=== PATIENT | female | born 1940 | race Caucasian/White ===

== ENCOUNTER 2023-12-03 12:42 | Inpatient (IN) | payer MEDICARE, OTHER ==
[~2023-12-03] VITALS: Ht 152.4 cm; Wt 81.6 kg
[~2023-12-03 12:42] MED LIST: DEXTROSE 50% 50 ML DISP.SYRIN ONE
[2023-12-03 13:07] LABS: BASOPHILS # (AUTO) 0.1 K/UL (0.0-0.2); BASOPHILS % (AUTO) 0.7 % (0.0-2.0); EOSINOPHILS % (AUTO) 0.4 % (0.0-7.0); HEMOGLOBIN 8.9 g/dL (10.9-14.3); LYMPHOCYTES # (AUTO) 1.6 K/uL (0.8-4.8); LYMPHOCYTES % (AUTO) 15.6 % (20.5-51.5); MEAN CORPUSCULAR HEMOGLOBIN 29.9 uug (24.7-32.8); MEAN CORPUSCULAR HGB CONC 33 g/dL (32.3-35.6); MONOCYTES # (AUTO) 0.7 K/uL (0.1-1.30); NEUTROPHILS # (AUTO) 7.7 K/uL (1.8-8.9); NEUTROPHILS % (AUTO) 76.3 % (38.5-71.5); PLATELET COUNT (AUTO) 145 K/uL (179-408); RED BLOOD CELL COUNT(AUTO) 2.97 MIL/uL (3.63-4.92); RED CELL DISTRIBUTION WIDTH 13.1 % (12.3-17.7)
[2023-12-03 13:26] LABS: DIFFERENTIAL COMMENT 1
[2023-12-03] MEDS ORDERED: ASPI81TA31 PO (13:31)
[2023-12-03] MEDS ORDERED: FURO20TA4 PO (13:31)
[2023-12-03] MEDS ORDERED: AMLO2.5T4 PO (13:31)
[2023-12-03] MEDS ORDERED: HYDR-4077 PO (13:31)
[2023-12-03] MEDS ORDERED: CLON0.1T PO (13:31)
[2023-12-03] MEDS ORDERED: OMEP40CA21 PO (13:31)
[2023-12-03] MEDS ORDERED: TRAM50TA2 PO (13:31)
[2023-12-03] MEDS ORDERED: LEVO137T2 PO (13:31)
[2023-12-03] MEDS ORDERED: DOXA4TAB3 PO (13:31)
[2023-12-03] MEDS ORDERED: METO-356 PO (13:31)
[2023-12-03] MEDS ORDERED: ACET-2605 PO (13:31)
[2023-12-03] MEDS ORDERED: ATOR10TA PO (13:31)
[2023-12-03] MEDS ORDERED: CYAN-28 PO (13:31)
[2023-12-03] MEDS ORDERED: ALPR0.5T8 PO (13:31)
[2023-12-03] MEDS ORDERED: METOCLOPRAMIDE HCL 10 MG/2 ML VIAL ONE (13:38)
[2023-12-03] MEDS: METOCLOPRAMIDE HCL 10 MG/2 ML VIAL IV ONE (13:40)
[2023-12-03 13:44] LABS: ALANINE AMINOTRANSFERASE 44 U/L (14-59); ALBUMIN 3.1 g/dL (3.4-5.0); ALKALINE PHOSPHATASE 114 U/L (50-136); ASPARTATE AMINOTRANSFERASE 35 U/L (15-37); BILIRUBIN,DIRECT 0.1 mg/dL (0.0-0.2); BILIRUBIN,TOTAL 0.4 mg/dL (0.2-1.0); CALCIUM 8.9 mg/dL (8.5-10.1); CARBON DIOXIDE 27 mmol/L (21-32); CHLORIDE 96 mmol/L (98-107); CREATININE 2.8 mg/dL (0.6-1.3); GLUCOSE 124 mg/dL (74-106); NT-PRO BNP 6252 pg/mL (0-125); SODIUM SERUM 130 mmol/L (136-145); TOTAL PROTEIN, SERUM 6.6 g/dL (6.4-8.2); UREA NITROGEN, BLOOD 57 mg/dL (7-18)
[2023-12-03 13:46] LABS: POTASSIUM 6.2 mmol/L (3.5-5.1)
[2023-12-03] MEDS ORDERED: CALCIUM GLUCONATE 1 GM/10 ML VIAL IV ONE (13:50)
[2023-12-03] MEDS ORDERED: INSULIN REGULAR, HUMAN 300 UNIT/3 ML VIAL ONE (14:03)
[2023-12-03] MEDS: CALCIUM GLUCONATE IV 1 GM in IV DEXTROSE 5% 50 ML IV ONE (14:11)
[2023-12-03] MEDS: INSULIN REGULAR, HUMAN 300 UNIT/3 ML VIAL IV ONE (14:13)
[2023-12-03] MEDS: DEXTROSE 50% 50 ML DISP.SYRIN IV ONE (14:14)
[2023-12-03] MEDS ORDERED: ALBUTEROL SULFATE 2.5 MG/3 ML NEBU ONE (14:19)
[2023-12-03 14:22] VITALS: O2SAT 95
[2023-12-03] MEDS: ALBUTEROL SULFATE 2.5 MG/ 0.5 ML NEBU NEB ONE (14:22)
[2023-12-03] MEDS ORDERED: FUROSEMIDE 40 MG/4 ML VIAL ONE (14:23)
[2023-12-03] MEDS: FUROSEMIDE 40 MG/4 ML VIAL IV ONE (14:33)
[2023-12-03] MEDS: SODIUM POLYSTYRENE SULFONATE 15 G/60 ML LIQUID UDC PO ONE (14:33)
[2023-12-03] MEDS ORDERED: ALPRAZOLAM 0.5 MG TABLET PO PRN (14:45)
[2023-12-03] MEDS ORDERED: ONDANSETRON 4 MG/2 ML VIAL IV PRN (15:00)
[2023-12-03] MEDS ORDERED: ACETAMINOPHEN 325 MG TABLET PO PRN (15:00)
[2023-12-03] MEDS ORDERED: MORPHINE SULFATE 2 MG/1 ML DISP.SYRIN IVP PRN (15:00)
[2023-12-03] MEDS ORDERED: hydrALAZINE HCL 20 MG/1 ML VIAL IV PRN (15:00)
[2023-12-03 15:15] VITALS: O2SAT 100; O2SAT 95
[2023-12-03] MEDS: IV NORMAL SALINE 500 ML BAG IV ONE (15:22)
[2023-12-03 15:24] LABS: ALANINE AMINOTRANSFERASE 44 U/L (14-59); ALBUMIN 3.1 g/dL (3.4-5.0); ALKALINE PHOSPHATASE 115 U/L (50-136); ASPARTATE AMINOTRANSFERASE 43 U/L (15-37); BILIRUBIN,TOTAL 0.3 mg/dL (0.2-1.0); CALCIUM 8.5 mg/dL (8.5-10.1); CARBON DIOXIDE 23 mmol/L (21-32); CHLORIDE 96 mmol/L (98-107); CREATININE 2.9 mg/dL (0.6-1.3); GLUCOSE 124 mg/dL (74-106); POTASSIUM 6.1 mmol/L (3.5-5.1); SODIUM SERUM 129 mmol/L (136-145); TOTAL PROTEIN, SERUM 6.6 g/dL (6.4-8.2); UREA NITROGEN, BLOOD 59 mg/dL (7-18)
[2023-12-03] MEDS ORDERED: ALPRAZOLAM 0.5 MG TABLET ONE (16:13)
[2023-12-03] MEDS: ALPRAZOLAM 0.25 MG TABLET PO PRN (16:17)
[2023-12-03] MEDS ORDERED: hydrALAZINE HCL 50 MG TABLET PO SCH (17:00)
[2023-12-03 17:35] VITALS: BP 145/80; TEMP 97; O2SAT 99
[2023-12-03] MEDS ORDERED: HEPARIN SODIUM,PORCINE 5,000 UNITS/ML VIAL SQ SCH (21:00)
[2023-12-03] MEDS ORDERED: ATORVASTATIN 10 MG TABLET PO SCH (21:00)
[2023-12-04] MEDS ORDERED: LEVOTHYROXINE SODIUM 137 MCG TABLET PO SCH (07:00)
[2023-12-04] MEDS ORDERED: PANTOPRAZOLE SODIUM 40 MG TABLET.DR PO SCH (07:00)
[2023-12-04] MEDS ORDERED: ASPIRIN 81 MG TAB.CHEW PO SCH (09:00)
[2023-12-04] MEDS ORDERED: Medication Not On Formulary EA (Omeprazole 40 MG) PO SCH (09:00)
[2023-12-04] MEDS ORDERED: AMLODIPINE 2.5 MG TABLET PO SCH (09:00)
[2023-12-04] MEDS ORDERED: FUROSEMIDE 20 MG TABLET PO SCH (09:00)
[2023-12-04] MEDS ORDERED: DOXAZOSIN 2 MG TABLET PO SCH (09:00)
== END 2023-12-03 17:20 | disposition left against medical advice (07) | DRG 641 ==
LOC: ER 12:42 → TRANSITION 17:04 → UNDODISIN 17:30
PROVIDERS: ADMIT Internal Medicine; ATTEND Internal Medicine
DX: E87.5 Hyperkalemia (principal); N18.4 Chronic kidney disease, stage 4 (severe); R00.1 Bradycardia, unspecified; I25.10 Atherosclerotic heart disease of native coronary artery without angina pectoris; I25.2 Old myocardial infarction; I50.9 Heart failure, unspecified; Z79.899 Other long term (current) drug therapy; Z79.82 Long term (current) use of aspirin
CPT/HCPCS: 36415; 71045; 83735; 84443; 84481; 84484; 85025; 93005; 93307; G0378; J0610; J1815; J1940; J2765; J3490; J7040; J7060

== ENCOUNTER 2025-02-21 01:12 | Inpatient (IN) | payer MEDICARE, OTHER ==
[2025-02-21] VITALS (10 sets, daily range): BP systolic 123–142; BP diastolic 44–54; TEMP 98.3–99.1; O2SAT 96–99
[~2025-02-21] VITALS: Ht 152.4 cm; Wt 80.8 kg
[~2025-02-21 01:12] MED LIST changes: +ACET-2605 PO; +ALPR0.5T8 PO; +AMLO2.5T4 PO; +ASPI81TA31 PO; +ATOR10TA PO; +CLON0.1T PO; +CYAN-28 PO; -DEXTROSE 50% 50 ML DISP.SYRIN ONE; +DOXA4TAB3 PO; +FURO20TA4 PO; +HYDR-4077 PO; +LEVO137T2 PO; +METO-356 PO; +OMEP40CA21 PO; +TRAM50TA2 PO
[2025-02-21 02:34] LABS: *BILIRUBIN,URIN NEGATIVE (NEGATIVE); *BLOOD, URINE NEGATIVE (NEGATIVE); *CLARITY,URINE CLOUDY (CLEAR); *COLOR,URINE YELLOW (YELLOW); *KETONES,URINE NEGATIVE (NEGATIVE); *PROTEIN,URINE NEGATIVE (NEGATIVE); *UROBILINOGEN,URINE 0.2 E.U./dl (NORMAL); LEUKOCYTE ESTERASE ,URINE 2+ (NEGATIVE); NITRITE, URINE POSITIVE (NEGATIVE); UGLUCOSE NEGATIVE (NEGATIVE)
[2025-02-21 02:35] LABS: PLATELET COUNT (AUTO) 280 K/uL (179-408); RED BLOOD CELL COUNT(AUTO) 2.89 MIL/uL (3.63-4.92); RED CELL DISTRIBUTION WIDTH 16.0 % (12.3-17.7); WHITE BLOOD COUNT (AUTO) 10.8 K/uL (3.8-11.8)
[2025-02-21 02:49] LABS: SQUAMOUS EPITHELIAL CELL,UR FEW /HPF (NONE SEEN)
[2025-02-21 02:51] LABS: CREATININE 2.4 mg/dL (0.6-1.3); SODIUM SERUM 135 mmol/L (136-145)
[2025-02-21 02:57] LABS: ASPARTATE AMINOTRANSFERASE 15 U/L (15-37); TOTAL PROTEIN, SERUM 7.3 g/dL (6.4-8.2); UREA NITROGEN, BLOOD 86 mg/dL (7-18)
[2025-02-21 03:22] LABS: CREATINE KINASE, TOTAL 29 U/L (26-192)
[2025-02-21] MEDS ORDERED: REMEDY ESSENTIAL ZINC PASTE 113 GM TP PRN (03:30)
[2025-02-21] MEDS ORDERED: ONDANSETRON 4 MG/2 ML VIAL IV PRN (03:30)
[2025-02-21] MEDS ORDERED: HYDROCODONE/APAP 5-325MG TABLET PO PRN (03:30)
[2025-02-21] MEDS ORDERED: MAGNESIUM HYDROXIDE 30 ML LIQUID UDC PO PRN (03:30)
[2025-02-21] MEDS ORDERED: TEMAZEPAM 15 MG CAPSULE PO PRN (03:30)
[2025-02-21] MEDS ORDERED: ACETAMINOPHEN 325 MG TABLET PO PRN (03:30)
[2025-02-21] MEDS: IV NORMAL SALINE 500 ML IV ONE (03:37)
[2025-02-21] MEDS: ALPRAZOLAM 0.5 MG TABLET PO ONE (05:48)
[2025-02-21] MEDS: PANTOPRAZOLE SODIUM 40 MG TABLET.DR PO SCH (06:18)
[2025-02-21] MEDS: ASPIRIN 81 MG TAB.CHEW PO SCH (08:46)
[2025-02-21] MEDS ORDERED: CHOL2000 PO (10:21)
[2025-02-21] MEDS ORDERED: AZEL137S7 BNOSTRILS (10:21)
[2025-02-21] MEDS ORDERED: FOLI1TAB27 PO (10:22)
[2025-02-21] MEDS ORDERED: DICL100G31 TP (10:24)
[2025-02-21] MEDS ORDERED: TRAMADOL HCL 50 MG TABLET PO PRN (18:00)
[2025-02-21] MEDS: ALPRAZOLAM 0.5 MG TABLET PO PRN (18:37)
[2025-02-21] MEDS: ATORVASTATIN 10 MG TABLET PO SCH (20:25)
[2025-02-22 00:30] LABS: *BILIRUBIN,URIN NEGATIVE (NEGATIVE); *BLOOD, URINE NEGATIVE (NEGATIVE); *CLARITY,URINE SLIGHTLY CLOUDY (CLEAR); *COLOR,URINE YELLOW (YELLOW); *KETONES,URINE NEGATIVE (NEGATIVE); *PROTEIN,URINE 1+ (NEGATIVE); *UROBILINOGEN,URINE 0.2 E.U./dl (NORMAL); LEUKOCYTE ESTERASE ,URINE 1+ (NEGATIVE); NITRITE, URINE NEGATIVE (NEGATIVE); UGLUCOSE NEGATIVE (NEGATIVE)
[2025-02-22 00:43] LABS: *CREATININE,URINE 24.8 mg/dL (30-125); *SODIUM RNDM,URINE 13.0 mmol/L (40-220); *URINE TOTAL PROTEIN RANDOM 24.3 mg/dL (<150/24HR)
[2025-02-22 00:48] LABS: SQUAMOUS EPITHELIAL CELL,UR MODERATE /HPF (NONE SEEN)
[2025-02-22 05:14] VITALS: BP 156/61; TEMP 97.4; O2SAT 98
[2025-02-22] MEDS: LEVOTHYROXINE SODIUM 137 MCG TABLET PO SCH (06:10)
[2025-02-22 07:10] LABS: PLATELET COUNT (AUTO) 236 K/uL (179-408); RED BLOOD CELL COUNT(AUTO) 2.62 MIL/uL (3.63-4.92); RED CELL DISTRIBUTION WIDTH 16.0 % (12.3-17.7); WHITE BLOOD COUNT (AUTO) 6.7 K/uL (3.8-11.8)
[2025-02-22 07:11] LABS: ASPARTATE AMINOTRANSFERASE 15 U/L (15-37); CREATINE KINASE, TOTAL 38 U/L (26-192); CREATININE 1.9 mg/dL (0.6-1.3); SODIUM SERUM 141 mmol/L (136-145); TOTAL PROTEIN, SERUM 6.3 g/dL (6.4-8.2); UREA NITROGEN, BLOOD 66 mg/dL (7-18)
[2025-02-22 07:42] VITALS: BP 155/60; TEMP 98.5; O2SAT 98
[2025-02-22 08:05] LABS: IRON, SERUM 24 ug/dL (50-175)
[2025-02-22] MEDS: DOXAZOSIN 2 MG TABLET PO SCH (08:54)
[2025-02-22] MEDS: METOPROLOL SUCCINATE XL 25 MG TAB.SR.24H PO SCH (08:55)
[2025-02-22] MEDS: FOLIC ACID 1 MG TABLET PO SCH (08:55)
[2025-02-22] MEDS: CLONIDINE HCL 0.1 MG TABLET PO SCH (08:55)
[2025-02-22] MEDS ORDERED: ASPIRIN 81 MG TAB.CHEW PO SCH (09:00)
[2025-02-22 10:50] VITALS: BP 139/48; TEMP 97.9; O2SAT 97
[2025-02-22] MEDS: SOD FERRIC GLUC COMPLX/SUCROSE 125 MG in IV NORMAL SALINE 100 ML IV SCH (15:06)
[2025-02-22 15:53] VITALS: BP 145/50; TEMP 98.1; O2SAT 96
[2025-02-22] MEDS: ENSURE ENLIVE (VAN) 240 ML LIQUID PO SCH (17:32)
[2025-02-22 19:20] VITALS: BP 140/54; TEMP 98.9; O2SAT 98
[2025-02-23 03:27] LABS: *OCCULT BLOOD STOOL NEGATIVE (NEGATIVE)
[2025-02-23 06:58] LABS: CREATININE 1.9 mg/dL (0.6-1.3); SODIUM SERUM 141 mmol/L (136-145); UREA NITROGEN, BLOOD 54 mg/dL (7-18)
[2025-02-23 07:04] VITALS: BP 156/61; TEMP 98; O2SAT 97
[2025-02-23 08:07] LABS: PTH, INTACT 26 pg/mL (15-65)
[2025-02-23 08:19] LABS: PLATELET COUNT (AUTO) 241 K/uL (179-408); RED BLOOD CELL COUNT(AUTO) 2.64 MIL/uL (3.63-4.92); RED CELL DISTRIBUTION WIDTH 16.2 % (12.3-17.7); WHITE BLOOD COUNT (AUTO) 8.0 K/uL (3.8-11.8)
[2025-02-23 11:06] VITALS: BP 120/60; TEMP 98.2; O2SAT 96
[2025-02-23] MEDS ORDERED: SULF1TAB48 PO (14:44)
[2025-02-23] MEDS ORDERED: FERR-68 PO (14:44)
[2025-02-23 15:00] VITALS: BP 130/52; TEMP 97.6; O2SAT 98
== END 2025-02-23 16:30 | disposition home health service (06) | DRG 291 ==
LOC: ER 01:22 → TELE3 03:25 → MEDSURG3 02-22 09:30
PROVIDERS: ADMIT Nurse Practitioner Acute Care; ATTEND Internal Medicine
DX: I13.0 Hypertensive heart and chronic kidney disease with heart failure and stage 1 through stage 4 chronic kidney disease, or unspecified chronic kidney disease (principal); G93.41 Metabolic encephalopathy; N39.0 Urinary tract infection, site not specified; N17.9 Acute kidney failure, unspecified; E87.1 Hypo-osmolality and hyponatremia; I24.89 Other forms of acute ischemic heart disease; D63.1 Anemia in chronic kidney disease; R62.7 Adult failure to thrive; Z68.35 Body mass index [BMI] 35.0-35.9, adult; E86.0 Dehydration; E03.9 Hypothyroidism, unspecified; I25.2 Old myocardial infarction; B96.20 Unspecified Escherichia coli [E. coli] as the cause of diseases classified elsewhere; N18.9 Chronic kidney disease, unspecified; I50.9 Heart failure, unspecified; G31.84 Mild cognitive impairment of uncertain or unknown etiology; E78.5 Hyperlipidemia, unspecified; I25.10 Atherosclerotic heart disease of native coronary artery without angina pectoris; E66.9 Obesity, unspecified; Z68.34 Body mass index [BMI] 34.0-34.9, adult; K21.9 Gastro-esophageal reflux disease without esophagitis; Z79.899 Other long term (current) drug therapy; Z79.82 Long term (current) use of aspirin; Z79.890 Hormone replacement therapy; E88.09 Other disorders of plasma-protein metabolism, not elsewhere classified; M25.562 Pain in left knee; M25.561 Pain in right knee
CPT/HCPCS: 36415; 71045; 76770; 83550; 83735; 83970; 84100; 84155; 84165; 84300; 84443; 84484; 85025; 87077; 87086; A6213; G0378; J0696; J2916; J7040